=== PATIENT | female | born 1950 | race Caucasian/White ===

== ENCOUNTER 2021-03-20 20:05 | Emergency (ER) | payer MEDICARE, OTHER ==
[~2021-03-20 20:05] MED LIST: AZITHROMYCIN250 MG PO; CATAPRES 0.1MG0.1 MG PO; CORDARONE 200M200 MG PO; COZAAR100 MG PO; DIGOXIN PO; ELIQUIS5 MG PO; FOLIC ACID0.4 MG PO; FUROSEMIDE40 MG PO; HYDRALAZINE HCL25 MG PO; IPRAT-ALBUT 0.5-3 ML INH; LANOXIN125 MCG PO; LOPRESSOR100 MG PO; OMEPRAZOLE40 MG PO; OMNICEF 300 MG300 MG PO; SOTALOL AF80 MG PO; THERAGRAN M TAB1 EA PO; VALSARTAN320 MG PO; VITAMIN B-121000 MCG PO
[2021-03-20 20:58] LABS: HEMOGLOBIN 10.6 gm/dl (12.3-15.3); RED BLOOD COUNT 3.76 M/UL (4.00-5.10); WHITE BLOOD COUNT 9.6 K/UL (4.5-11.0)
[2021-03-21] MEDS ORDERED: KEFLEX750 MG PO (02:07)
== END 2021-03-21 03:27 | disposition home or self-care (01) ==
LOC: ER1 20:05
PROVIDERS: Family Medicine
DX: L03.116 Cellulitis of left lower limb (principal); I48.91 Unspecified atrial fibrillation; I50.9 Heart failure, unspecified
CPT/HCPCS: 71045; 80053; 85025; 85379; 85610; 93970; 96374; 99284; J0690